=== PATIENT | female | born 1980 | race Caucasian/White ===

== ENCOUNTER 2017-09-17 17:39 | Observation (INO) ==
--- NOTE | 2017-09-17 18:23 | Emergency Department Note ---
Disposition Clinical Impression: Generalized weakness Anemia Qualifiers: Anemia type: unspecified type Qualified Code(s): D64.9 - Anemia, unspecified Disposition: Admitted As Inpatient Condition: Fair Referrals: Kathy Clancy CNP [Primary Care Provider] - Forms: ED Satisfaction Letter Time of Disposition: 19:43 Recheck wound or abnormal lab - General Chief Complaint: ED Recheck/Abnormal Lab/Rx Stated Complaint: abnormal labs/blood transfusion sent by Time Seen by Provider: 09/17/17 18:12 Source: patient, family Mode of arrival: ambulatory Limitations: no limitations Nursing Notes Reviewed: Yes Vital Signs Reviewed: Yes - History of Present Illness HPI Narrative: 37-year-old comes in been tired and weak when see her doctor yesterday and they did some lab work and found her hemoglobin to be 6.7. She also has a history of thyroid cancer and this was to be on thyroid medicine but ran out about a year ago. Pt Subjective Complaint: abnormal lab(s) Returns Today for: other (Possible blood transfusion) - Related Data Previous Rx's Medication Instructions Recorded Docusate [Colace] 200 mg PO BID #40 capsule 09/22/16 Peg 3350/Na Sulf,Bicarb,Cl/KCl 4,000 ml PO ONCE #1 soln.recon 09/22/16 [Golytely Solution] Allergies Allergy/AdvReac Type Severity Reaction Status Date / Time tramadol Allergy Rash Verified 09/17/17 17:50 Hydromorphone [From Dilaudid] AdvReac Rash Verified 09/17/17 17:50 All systems ED: reviewed and negative except as stated. Constitutional: Denies: fever, chills, weakness, weight change Eyes: Denies: eye pain, eye discharge, vision change ENT ED: Denies: ear pain, throat pain, dental pain, hearing loss, epistaxis, congestion, dysphagia Cardiovascular: Denies: chest pain, palpitations, dyspnea on exertion, edema, syncope Respiratory: Denies: cough, dyspnea, wheezes, hemoptysis, stridor Gastrointestinal: Denies: abdominal pain, nausea, vomiting, diarrhea, constipation, hematemesis, melena, hematochezia Genitourinary: Denies: dysuria, frequency, hematuria, discharge Musculoskeletal: Denies: back pain, neck pain, arthralgia, myalgia Integumentary: Denies: rash, abrasion, lesions Neurological: Reports: weakness (Generalized). Denies: headache, numbness, paresthesias, confusion, abnormal gait, vertigo Psychiatric: Denies: anxiety, depression, suicidal thoughts, homicidal thoughts , auditory hallucinations, visual hallucinations Endocrine: Denies: fatigue Hematological/Lymphatic: Denies: easy bleeding, easy bruising Allergic/Immunologic: Denies: facial swelling, urticaria Past Medical History - Past Medical History Medical history: Reports: cancer Psychiatric history: Reports: no psych history - Social History Smoking Status: Current every day smoker Smokeless Tobacco Status: No Alcohol use: Reports: none Drug use: Reports: none Physical Exam - General Limitations: no limitations General appearance: alert, in no apparent distress - Head Head exam: atraumatic, normocephalic, normal inspection - Eye Eye exam: Present: normal appearance, PERRL, EOMI - ENT ENT exam: normal exam, normal oropharynx, mucous membranes moist - Neck Neck exam: Present: normal inspection, full ROM, trachea midline - Chest Chest inspection: Present: normal inspection, symmetric chest wall rise - Respiratory Respiratory exam: Present: normal lung sounds bilaterally - Cardiovascular Cardiovascular exam: Present: regular rate, normal rhythm, normal heart sounds - Abdominal Exam Abdominal exam: Present: soft, Non-Tender. Absent: tenderness, distention, guarding, rebound, rigidity - Extremities Exam Extremities exam: Present: normal inspection, full ROM. Absent: tenderness, pedal edema - Expanded Lower Extremity Exam Neurovascular/Tendon exam: Absent: motor deficit, sensory deficit, tendon deficit Gait: observed and normal - Back Exam Back exam: Present: normal inspection, full ROM. Absent: tenderness - Neurological Exam Neurological exam: Present: alert, oriented X3 - Psychiatric Psychiatric exam: Present: normal affect, normal mood - Skin Skin exam: Present: warm, dry, intact, normal color Course - Reevaluation(s) Reevaluation #1: 37-year-old with anemia that is significant as very fatigued can barely get out of bed. She also has a history of thyroid cancer with thyroid removal and she does not take any thyroid medication. Time: 19:42 - Consultations Consultation #1: Discussed with Dr. Lambert, admit Time: 19:42 Vital Signs Temperature 99.7 F H 09/17/17 17:53 Pulse Rate 80 09/17/17 17:53 Respiratory Rate 20 09/17/17 17:53 Blood Pressure 117/76 09/17/17 17:53 O2 Sat by Pulse Oximetry 100 09/17/17 17:53 Temperature 99.7 F H 09/17/17 17:53 Pulse Rate 66 09/17/17 19:10 Respiratory Rate 15 09/17/17 19:10 Blood Pressure 91/69 09/17/17 19:10 O2 Sat by Pulse Oximetry 100 09/17/17 19:10 Oxygen Delivery Oxygen Delivery Room Air Recheck wound or abnormal lab - Lab Data Result diagrams: 09/17/17 17:56 09/17/17 17:56 Lab Results 09/17/17 09/17/17 09/17/17 Range/Units 17:56 17:56 18:25 WBC 4.9 (4.3-11.1) K/mcL RBC 3.02 L (3.82-4.97) M/mcL Hgb 7.2 L (11.5-15.4) g/dL Hct 24.0 L (35.3-44.9) % MCV 79.5 L (83.0-100.0) fL MCH 23.8 L (28.0-33.3) pg MCHC 30.0 L (31.6-35.5) g/dL RDW 18.3 H (11.5-14.5) % Plt Count 477 H (140-400) K/mcL MPV 8.5 L (9.4-12.4) fL Immature Gran % 0.4 (0-4) % Seg Neutrophils % 57.8 % Lymphocytes % 32.9 % Monocytes % 6.7 % Eosinophils % 1.8 % Basophils % 0.4 % Neutrophils # 2.8 (1.6-8.9) K/mcL Lymphocytes # 1.6 (0.6-4.6) K/mcL Monocytes # 0.3 (0.0-1.3) K/mcL Eosinophils # 0.1 (0.0-0.6) K/mcL Basophils # 0.0 (0.0-0.2) K/mcL Sodium 137 (136-145) mEq/L Potassium 3.8 (3.5-5.1) mEq/L Chloride 103 (98-107) mEq/L Carbon Dioxide 27 (23-29) mEq/L BUN 11 (6-20) mg/dL Creatinine 0.86 (0.60-1.20) mg/dL Est GFR ( Amer) > 60 (> 60) Est GFR (Non-Af Amer) > 60 (> 60) BUN/Creatinine Ratio 13 (6-26) Glucose 84 (70-105) mg/dL Calculated Osmolality 283 (280-300) Calcium 8.7 (8.6-10.3) mg/dL Total Bilirubin 0.4 (0.3-1.0) mg/dL Direct Bilirubin 0.1 (0.0-0.2) mg/dL Indirect Bilirubin 0.3 (0.0-1.2) mg/dL AST 41 H (13-39) Units/L ALT 22 (7-52) Units/L Alkaline Phosphatase 57 (34-104) Units/L Serum Total Protein 7.7 (6.4-8.9) g/dL Albumin 4.9 (3.5-5.7) g/dL Globulin 2.8 (2.4-3.5) g/dL Albumin/Globulin Ratio 1.8 (1.1-2.2) Blood Type A NEGATIVE Antibody Screen NEGATIVE Crossmatch See Detail
[2017-09-17 18:41] LABS: Basophils % 0.4 %; Eosinophils # 0.1 K/mcL (0.0-0.6); Eosinophils % 1.8 %; Hemoglobin 7.2 g/dL (11.5-15.4); Immature Granulocytes % 0.4 % (0-4); Lymphocytes # 1.6 K/mcL (0.6-4.6); Lymphocytes % 32.9 %; Mean Corpuscular Hemoglobin 23.8 pg (28.0-33.3); Mean Corpuscular Volume 79.5 fL (83.0-100.0); Mean Platelet Volume 8.5 fL (9.4-12.4); Monocytes # 0.3 K/mcL (0.0-1.3); Monocytes % 6.7 %; Neutrophils # 2.8 K/mcL (1.6-8.9); Platelet Count 477 K/mcL (140-400); Red Blood Count 3.02 M/mcL (3.82-4.97); Red Cell Distribution Width 18.3 % (11.5-14.5); Segmented Neutrophils % 57.8 %
[2017-09-17 19:08] LABS: Alanine Aminotransferase 22 Units/L (7-52); Albumin 4.9 g/dL (3.5-5.7); Albumin/Globulin Ratio 1.8 (1.1-2.2); Alkaline Phosphatase 57 Units/L (34-104); Aspartate Amino Transferase 41 Units/L (13-39); BUN/Creatinine Ratio 13 (6-26); Bilirubin,Direct 0.1 mg/dL (0.0-0.2); Bilirubin,Indirect 0.3 mg/dL (0.0-1.2); Bilirubin,Total 0.4 mg/dL (0.3-1.0); Blood Urea Nitrogen 11 mg/dL (6-20); Calcium 8.7 mg/dL (8.6-10.3); Carbon Dioxide 27 mEq/L (23-29); Chloride 103 mEq/L (98-107); Globulin 2.8 g/dL (2.4-3.5); Glucose 84 mg/dL (70-105); Osmolality,Calculated 283 (280-300); Potassium 3.8 mEq/L (3.5-5.1); Sodium 137 mEq/L (136-145); Total Protein 7.7 g/dL (6.4-8.9); eGFR For African Americans > 60 (> 60); eGFR For Non-African Americans > 60 (> 60)
[2017-09-17] MEDS ORDERED: 0.9 % Sodium Chloride 250 ML ONE (20:43)
--- NOTE | 2017-09-17 22:05 | Internal Med History&Physical ---
<Christiano Le - Last Filed: 09/17/17 22:48> Date of Encounter: 09/17/17 Time of Encounter: 22:04 Assessment and Plan (1) Hypothyroidism Current visit: Yes Status: Acute 1. Patient states she has been noncompliant with her medication and this is the most likely source of all of her symptoms 2. Was given 50 g of Synthroid in the emergency department, will continue daily at a dose of 75-100 mcg 3. We will send off for thyroid antibodies and T3 as well as obtain a thyroid ultrasound 4. An EKG was ordered due to bradycardia and low voltage QRS. 5. She has been borderline hypotensive but has a normal map and his had no altered mental status or hypothermia 6. Further complicating her hypothyroidism is her anemia which is being worked up separately, but certainly could have been an exacerbating factor 7. We will get a chest x-ray and VBG to evaluate for pleural effusion 8. We will also check a CK 9. Initial TSH and T4 levels are suggestive of primary hypothyroidism 10. If patient's condition worsens before she starts developing any altered mental status, worsening hypotension or significant bradycardia. We will start hydrocortisone 100 mg every 8 hours IV but will hold off on this for now and she does not appear to be critically ill Qualifiers: Hypothyroidism type: postoperative Qualified Code(s): E89.0 - Postprocedural hypothyroidism (2) Anemia Current visit: Yes Status: Acute 1. Unclear etiology at this time 2. Is a microcytic anemia, so we will check iron profile and reticulocyte count after her 2U PRBC blood transfusion. Since this was started prior to ordering these labs 3. Hemoccult stool ordered 4. Patient also complaining of constipation but this is chronic for her and likely related to her hypothyroidism, will add bowel regimen Qualifiers: Anemia type: unspecified type Qualified Code(s): D64.9 - Anemia, unspecified (3) Generalized weakness Current visit: Yes Status: Acute 1. Multifactorial secondary to her hypothyroidism and anemia Internal Medicine - H&P: HPI Chief complaint: fatigue Admitted From: Emergency Dept Plans for Post Hospital Care: Home History of present illness: Ms. Fisher is a 37 year old female with remote history of thyroid cancer, status post removal about 10 years ago, but is otherwise healthy. She states that she has not been taking her medication over the last year. Complaining of increasing weakness and fatigue in the last year as well. She denies any fever or chills but does state that she gets cold very easily. She has had some thinning of her hair and brittle nails. She has also had a hoarse voice and her mother describes her voice as squeaking at times. She denies any chest pain or shortness of breath. She does state that she gets very lightheaded and near syncopal at times, but most the time whenever she stands up too fast. She denies any abdominal pain but states that her abdomen does get lumpy at times. He denies any distention or bloating. Does complain of intermittent nausea but no vomiting. States that she had a normal bowel movement today that was nonbloody, non-melanic and no diarrhea. However, she does have significant issues with constipation and states that sometimes she can go several weeks without having a bowel movement. She denies any dysuria or hematuria. She denies any pain or swelling in her legs. No back pain, headache or changes in vision. No rashes. She was found to have a microcytic anemia in the ER and 2 units of blood were ordered. Patient does state that she has very heavy periods. This likely related to iron deficiency as there is no obvious source of bleeding. See plan. Past Med Surg Social Fam HX - Past Medical History Medical history: cancer Additional medical history: thyroid cancer Psychiatric history: no psych history - Social History Smoking Status: Current every day smoker Smokeless Tobacco Status: No Alcohol use: none Drug use: none - Family History Paternal Grandmother Living Status: Hx Family Cancer: Yes (multiple myeloma) Brother Hx Family Cancer: (melonoma) Internal Medicine - H&P: Meds No Known Home Drugs 09/17/17 [History] 3 Allergy/AdvReac Type Severity Reaction Status Date / Time tramadol Allergy Rash Verified 09/17/17 17:50 Hydromorphone [From Dilaudid] AdvReac Rash Verified 09/17/17 17:50 All Systems PM: A 10-system review of systems was performed and is negative for pertinent findings except as documented above in the HPI. Review of systems: As reviewed in the HPI. All other systems reviewed are negative or normal. - Constitutional Vitals: Temp Pulse Resp BP Pulse Ox 98.5 F 57 14 95/72 99 09/17/17 21:10 06/19/18 21:32 09/17/17 21:32 09/17/17 21:32 09/17/17 21:32 General appearance: Present: A&O X 3, pleasant, no acute distress, answers questions appropriately - Head Head exam: Present: atraumatic, normocephalic - Eye Eye exam: Present: PERRL, conjuntiva pink, sclera anicteric Pupils: Present: PERRL - Neck Neck exam general surgery: Present: supple, trachea midline. Absent: lymphadenopathy - Respiratory Respiratory exam: Present: CTAB. Absent: accessory muscle use, rales, rhonchi, wheezes - Cardiovascular Cardiovascular exam: Present: bradycardia, +S1, +S2. Absent: diastolic murmur, gallop, RRR, rubs, systolic murmur - GI/Abdominal GI/Abdominal exam: Present: normal bowel sounds, soft, no peritoneal signs. Absent: distended, tenderness - Extremities Exam Extremities exam: Present: normal capillary refill, warm, radial pulses palpable and symmetrical. Absent: calf tenderness, cyanotic, pedal edema - Neurological Exam Neurological exam: Present: alert, CN II-XII intact, oriented X3, no focal deficits. Absent: facial droop, speech deficit - Skin Skin exam: Present: dry, intact, pallor Internal Med - H&P Results - Labs CBC & Chem 7: 09/17/17 17:56 09/17/17 17:56 - EKG Data -: EKG Interpreted by Myself (Sinus bradycardia, rate 53, QRS 99, QTC 429, normal axis, low voltage QRS, ) <Jessica Nino - Last Filed: 09/18/17 02:27> Date of Encounter: 09/18/17 Internal Medicine - H&P: HPI History of present illness: Ms. Fisher is a 37 year old female All Systems PM: A 10-system review of systems was performed and is negative for pertinent findings except as documented above in the HPI. - Constitutional Vitals: Temp Pulse Resp BP Pulse Ox 98.2 F 51 16 82/59 98 09/18/17 01:07 09/18/17 01:07 09/18/17 01:07 09/18/17 01:07 09/18/17 01:07 Internal Med - H&P Results - Labs CBC & Chem 7: 09/17/17 17:56 09/17/17 17:56 - Attending Attestation I have seen and examined this patient independently. I have discussed with resident physician Dr. Le regarding the management plan. Agree with the documentation except: Patient has history of thyroid cancer S/P thyroidectomy which explain patient's hypothyroidism. Patient is supposed to take 100 g Synthroid daily but she is noncompliant with the medication. Will start 125 mcg by mouth daily and closely monitor thyroid function. Patient's anemia probably due to heavy menoperoid. Will continue transfusion and closely monitor H&H. Patient may need further [employer] follow-up after discharge.
[2017-09-17] MEDS ORDERED: Naloxone 0.4 MG/ML INJ IVP PRN (22:16)
[2017-09-18] MEDS ORDERED: 0.9 % Sodium Chloride 250 ML ONE (00:42)
[2017-09-18 05:33] LABS: VBG HCO3 27 mEq/L (21-27); VBG PCO2 40 mmHg (41-51); VBG PH 7.43 pH Units (7.32-7.42); VBG PO2 110 mmHg (25-50)
[2017-09-18 05:36] LABS: Retculocyte # 0.05 M/mcL (0.05-0.10); Reticulocyte % 1.4 % (1.6-2.8)
[2017-09-18 05:38] LABS: Basophils % 0.5 %; Eosinophils # 0.1 K/mcL (0.0-0.6); Eosinophils % 3.2 %; Hematocrit 27.5 % (35.3-44.9); Hemoglobin 8.6 g/dL (11.5-15.4); Immature Granulocytes % 0.5 % (0-4); Immature Platelets 1.4 % (1.1-6.1); Lymphocytes # 1.6 K/mcL (0.6-4.6); Lymphocytes % 36.2 %; Mean Corpuscular HGB Conc 31.3 g/dL (31.6-35.5); Mean Corpuscular Hemoglobin 25.4 pg (28.0-33.3); Mean Corpuscular Volume 81.1 fL (83.0-100.0); Mean Platelet Volume 8.3 fL (9.4-12.4); Monocytes # 0.3 K/mcL (0.0-1.3); Monocytes % 7.8 %; Neutrophils # 2.3 K/mcL (1.6-8.9); Platelet Count 417 K/mcL (140-400); Red Blood Count 3.39 M/mcL (3.82-4.97); Segmented Neutrophils % 51.8 %
[2017-09-18 05:53] LABS: BUN/Creatinine Ratio 11 (6-26); Blood Urea Nitrogen 9 mg/dL (6-20); Calcium 8.1 mg/dL (8.6-10.3); Carbon Dioxide 25 mEq/L (23-29); Chloride 105 mEq/L (98-107); Glucose 97 mg/dL (70-105); Magnesium 2.2 mg/dL (1.6-2.6); Osmolality,Calculated 283 (280-300); Phosphorous 3.5 mg/dL (2.7-4.5); Potassium 3.6 mEq/L (3.5-5.1); Sodium 137 mEq/L (136-145); eGFR For African Americans > 60 (> 60); eGFR For Non-African Americans > 60 (> 60)
[2017-09-18 06:09] LABS: Triiodothyronine (T3) Free 0.99 pg/mL (2.50-3.90)
--- NOTE | 2017-09-18 11:59 | Internal Med Progress Note ---
Date of Encounter: 09/18/17 Time of Encounter: 11:55 - Assessment and plan (1) Anemia Current Visit: Yes Status: Acute Assessment and plan: Unclear etiology but most likely due to underlying hypothyroid but anemia panel ordered by admitting physician. Hemoccult test not done as patient did not pass stool he had. 2 unit blood transfusion and improving hemoglobin. No active bleeding CBC monitoring. Qualifiers: Anemia type: unspecified type Qualified Code(s): D64.9 - Anemia, unspecified (2) Hypothyroidism Current Visit: Yes Status: Acute Assessment and plan: History of papillary thyroid cancer. Is status post surgery and radioactive therapy. Noncompliant patient. Patient supposed to take thyroid medication 100 g daily but is stopped taking for 1 year. Eventually she developed progressive symptoms 40, constipation, heavy vaginal bleeding therefore seen ECP who ordered basic lab tests and called the patient to go ER as hemoglobin was around 6.7. Patient had bradycardia heart rate in 30s and 40s in the ER but now in higher 50s and lower 60s after getting thyroid medicine in the ER .Synthroid 50 g was given in the ER. I talked to Dr. bautista shift stacker on phone who did not see patient in the hospital but discussed the case and the she advised to his start levothyroxin 125 g daily and recommended to follow her up in 4-8 weeks. Further workup including TPO and ultrasound can be done outpatient. Slight elevation in CPK therefore will repeat the level Qualifiers: Hypothyroidism type: postoperative Qualified Code(s): E89.0 - Postprocedural hypothyroidism (3) Generalized weakness Current Visit: Yes Status: Chronic Assessment and plan: Most likely related with the above. Treat underlying cause (4) Bradycardia Current Visit: Yes Status: Acute Assessment and plan: Sinus bradycardia. Now heart rate in 50s-60s. Most likely due to underlying hypothyroid but will also order echocardiogram to rule out underlying etiology. Will consult electrician deck if needed. (5) DVT prophylaxis Current Visit: Yes Status: Acute Assessment and plan: SCDs - Time Spent With Patient Total time spent is greater than 50% in coordination of care (as documented) at patient's floor/unit and/or counseling patient: 25 - 35 minutes - Subjective Interval history: Patient lying comfortably on bed. Telemetry heart rate in 60s. Complaint of fatigue and generalized weakness. Intermittent fevers hot and cold. Patient received 2 unit of blood transfusion overnight. Review of the lab Patient denies fever, nausea, vomiting, headache, dizziness, chest pain, shortness of breath, urinary complaint. Chronic constipation. - Constitutional Vitals: Temp Pulse Resp BP Pulse Ox 98.1 F 54 18 91/65 99 09/18/17 11:20 09/18/17 11:20 09/18/17 11:20 09/18/17 11:20 09/18/17 11:20 General appearance: Present: A&O X 3, pleasant, no acute distress, answers questions appropriately Exam: General appearance: No acute distress, A&O X 3. Appears tired and pale Head exam: Atraumatic Eye exam: EOMI, PERRLA ENT exam: Moist oral mucosa Neck nontender, supple Respiratory exam: Clear to auscultation bilaterally Cardiovascular exam: Regular rate and rhythm, no systolic murmur Abdominal exam: Soft, nontender, nondistended, positive bowel sounds Extremities exam: No calf tenderness, no pedal edema Present: Skin-no rash, warm, dry, intact Neurological exam: Alert, awake, oriented 3, CN II-XII intact, no focal deficits. No facial droop. Normal speech. Normal gait. Internal Medicine: Result - Labs CBC & Chem 7: 09/18/17 05:21 09/18/17 05:21 Labs: Short CBC 09/18/17 Range/Units 05:21 WBC 4.4 (4.3-11.1) K/mcL Hgb 8.6 L (11.5-15.4) g/dL Hct 27.5 L (35.3-44.9) % Plt Count 417 H (140-400) K/mcL Neutrophils # 2.3 (1.6-8.9) K/mcL BMP 09/18/17 05:21 Sodium 137 Potassium 3.6 Chloride 105 Carbon Dioxide 25 BUN 9 Creatinine 0.79 Glucose 97 Calcium 8.1 L Consult Discharge Plan - Plan Referrals: Kathy Clancy CNP [Primary Care Provider] - 09/27/17 9:15 am
--- NOTE | 2017-09-18 12:34 | Electrocardiograph Report ---
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
[2017-09-18] MEDS: 0.9 % Sodium Chloride 1,000 ML IVC SCH ×2 (14:23→23:46)
[2017-09-18 14:49] LABS: Troponin I < 0.03 ng/mL (< 0.04)
[2017-09-18 15:07] LABS: Magnesium 2.2 mg/dL (1.6-2.6)
[2017-09-18] MEDS ORDERED: tiZANidine 4 MG TABLET PO PRN (20:19)
[2017-09-19 05:41] LABS: Basophils % 0.6 %; Eosinophils # 0.1 K/mcL (0.0-0.6); Eosinophils % 1.7 %; Hematocrit 27.1 % (35.3-44.9); Hemoglobin 8.4 g/dL (11.5-15.4); Immature Granulocytes % 0.6 % (0-4); Lymphocytes # 1.7 K/mcL (0.6-4.6); Lymphocytes % 37.4 %; Mean Corpuscular Hemoglobin 25.5 pg (28.0-33.3); Mean Corpuscular Volume 82.4 fL (83.0-100.0); Mean Platelet Volume 8.4 fL (9.4-12.4); Monocytes # 0.3 K/mcL (0.0-1.3); Monocytes % 6.7 %; Neutrophils # 2.5 K/mcL (1.6-8.9); Platelet Count 343 K/mcL (140-400); Red Blood Count 3.29 M/mcL (3.82-4.97); Red Cell Distribution Width 18.3 % (11.5-14.5)
[2017-09-19 05:57] LABS: BUN/Creatinine Ratio 11 (6-26); Blood Urea Nitrogen 8 mg/dL (6-20); Calcium 7.8 mg/dL (8.6-10.3); Carbon Dioxide 24 mEq/L (23-29); Chloride 107 mEq/L (98-107); Glucose 90 mg/dL (70-105); Osmolality,Calculated 282 (280-300); Potassium 3.4 mEq/L (3.5-5.1); Sodium 137 mEq/L (136-145); eGFR For African Americans > 60 (> 60); eGFR For Non-African Americans > 60 (> 60)
[2017-09-19] MEDS: 0.9 % Sodium Chloride 1,000 ML IVC SCH (09:34)
--- NOTE | 2017-09-19 12:31 | Discharge Summary ---
- NOTES TO OUTPATIENT PROVIDER Notes to Outpatient Provider: Follow-up with PCP in one week-repeat CPK. Need anemia workup on OPD basis. TSH, T4 in 2-4 weeks. Make appointment with bight maker in 4-6 week. Even herself hydrated Orders not resulted at time of discharge: Pending orders 09/17/17 22:11 XR chest 1V portable [XR] Routine Occult Blood,Stool [BF] Routine 09/17/17 22:16 Urinalysis reflex Microscopic [URIN] Routine 09/20/17 04:00 BMP [Basic Metabolic Panel] AM 0400 Complete Blood Count [HEME] AM 0400 Date of Encounter: 09/19/17 Time of Encounter: 12:23 - Discharge Diagnosis (1) Anemia Priority: Primary Status: Acute Assessment and Plan: Unclear etiology, most likely due to underlying hypothyroid but anemia workup needs to be done done on OPD basis by PCP. 2 unit blood transfusion stable hemoglobin and last 24-hour. No active bleeding. Hemoccult test negative Qualifiers: Anemia type: unspecified type Qualified Code(s): D64.9 - Anemia, unspecified (2) Hypothyroidism Priority: Primary Status: Acute Assessment and Plan: History of papillary thyroid cancer. status post surgery and radioactive therapy. Noncompliant patient. Patient supposed to take thyroid medication 100 g daily but stopped taking for 1 year. Eventually she developed progressive symptoms of fatigue, constipation, heavy vaginal bleeding therefore seen PCP who ordered basic lab tests and called the patient to go ER as hemoglobin was around 6.7. Patient had bradycardia heart rate in 30s and 40s in the ER therefore put on telemetry bed at 2 not. Thyroid supplementation started. I talked to Dr. bautista bight maker on phone who does not see patient in the hospital but discussed the case and the she advised to start levothyroxin 125 g daily and recommended to follow her up in 4-8 weeks. Further workup can be done outpatient. Trending down CPK -repeat level in one week at PCP office Qualifiers: Hypothyroidism type: postoperative Qualified Code(s): E89.0 - Postprocedural hypothyroidism Code(s): E03.9 - Hypothyroidism, unspecified SNOMED Code(s): 86297773 (3) Bradycardia Priority: Secondary Status: Acute Assessment and Plan: Sinus bradycardia. Most likely due to symptomatic hypothyroid .Resolved now. Heart rate more than 60. Echocardiogram with no acute finding and preserved LV function. . Code(s): R00.1 - Bradycardia, unspecified SNOMED Code(s): 26267233 (4) Generalized weakness Priority: Secondary Status: Chronic Assessment and Plan: Most likely related with the above. Improving now. Code(s): R53.1 - Weakness SNOMED Code(s): 27494315 Hospital course: Ms. Fisher is a 37 year old female patient with history of thyroid cancer status post surgery, hypothyroidism got admitted for symptomatic anemia and severe hypothyroidism. Please see details in diagnosis part of discharge summary. Patient is clinically stable therefore decided to discharge home. At the time of discharge patient is able to tolerate oral diet and ambulating well - Time Spent with Patient Total time spent providing and/or coordinating discharge services: - Discharge Medications Prescriptions: Levothyroxine [Synthroid] 125 mcg PO DAILY@0630 #30 tablet Home Medications: Levothyroxine [Synthroid] 125 mcg PO DAILY@0630 #30 tablet 09/19/17 [Rx] Allergies/Adverse Reactions: 3 Allergy/AdvReac Type Severity Reaction Status Date / Time tramadol Allergy Rash Verified 09/17/17 17:50 Hydromorphone [From Dilaudid] AdvReac Rash Verified 09/17/17 17:50 Date of admission: 09/17/17 21:01 Primary care physician: Kathy Clancy - Constitutional Vitals: Temp Pulse Resp BP Pulse Ox 98.1 F 64 18 95/68 100 09/19/17 11:45 09/19/17 11:45 09/19/17 11:45 09/19/17 11:45 09/19/17 11:45 General appearance: Present: A&O X 3, pleasant, no acute distress, answers questions appropriately Exam: General appearance: No acute distress, A&O X 3 Head exam: Atraumatic Eye exam: EOMI, PERRLA ENT exam: Moist oral mucosa Neck nontender, supple Respiratory exam: Clear to auscultation bilaterally Cardiovascular exam: Regular rate and rhythm, no systolic murmur Abdominal exam: Soft, nontender, nondistended, positive bowel sounds Extremities exam: No calf tenderness, no pedal edema Present: Skin-no rash, warm, dry, intact Neurological exam: Alert, awake, oriented 3, CN II-XII intact, no focal deficits. No facial droop. Normal speech. Normal gait. Romberg sign negative - Patient Status Disposition: Home, Self-Care Condition: Good Overall status at discharge: patient is back to baseline - Discharge Instructions Follow Up With: Kathy Clancy CNP [Primary Care Provider] - 09/27/17 9:15 am - Diet and Activity Activity: increase activity as tolerated Diet: advance to your usual diet - VTE Documentation of Mechanical Device: Intermittent pneumatic compression device
[2017-09-19 15:03] LABS: Bilirubin,Urine Negative (Negative); Blood,Urine Moderate (Negative); Clarity,Urine Clear (Clear); Color,Urine Yellow (Yellow); Glucose,Urine (UA) Normal (Normal); Ketones,Urine Negative (Negative); Leukocyte Esterase,Urine Negative (Negative); Nitrite,Urine Negative (Negative); Protein,Urine Negative (Neg-Trace); Specific Gravity,Urine 1.012 (1.010-1.025); Urobilinogen,Urine Normal (Normal)
[2017-09-19 15:05] LABS: Bacteria,Urine None Seen per hpf (None-Few); Hyaline Casts,Urine None Seen per lpf (None-Few); Squamous Epithelial Cell,Urine Moderate per lpf (None-Few); WBC,Urine 0-3 per hpf (0-3)
[2017-09-19 15:16] LABS: RBC,Urine 0-3 per hpf (0-3)
[2017-09-19 16:23] VITALS: BP 95/57
== END 2017-09-19 18:48 | disposition home or self-care (01) ==
LOC: 2NNU 17:39 → EMEROO 17:39 → 2NNU 22:02
PROVIDERS: ADMIT Internal Medicine; ATTEND Family Medicine

== ENCOUNTER 2021-09-16 16:40 | Inpatient (IN) ==
[2021-09-16 17:34] LABS: Bilirubin,Urine Negative (Negative); Blood,Urine Negative (Negative); Clarity,Urine Clear (Clear); Color,Urine Light-Yellow (Yellow); Glucose,Urine (UA) Normal (Normal); Ketones,Urine Negative (Negative); Leukocyte Esterase,Urine Negative (Negative); Nitrite,Urine Negative (Negative); PH,Urine 6.5 pH Units (5.0-8.0); Protein,Urine Trace mg/dL (Neg-Trace); Specific Gravity,Urine 1.028 (1.010-1.025); Urobilinogen,Urine Normal (Normal)
[2021-09-16 17:50] LABS: Basophils % 0.5 %; Eosinophils # 0.1 K/mcL (0.0-0.6); Eosinophils % 2.7 %; Hematocrit 23.2 % (35.3-44.9); Hemoglobin 6.8 g/dL (11.5-15.4); Immature Granulocytes % 0.2 % (0-4); Lymphocytes # 1.1 K/mcL (0.6-4.6); Lymphocytes % 26.9 %; Mean Corpuscular HGB Conc 29.3 g/dL (31.6-35.5); Mean Corpuscular Hemoglobin 22.8 pg (28.0-33.3); Mean Corpuscular Volume 77.9 fL (83.0-100.0); Mean Platelet Volume 8.6 fL (9.4-12.4); Monocytes # 0.3 K/mcL (0.0-1.3); Monocytes % 7.7 %; Neutrophils # 2.5 K/mcL (1.6-8.9); Platelet Count 440 K/mcL (140-400); Red Blood Count 2.98 M/mcL (3.82-4.97); Red Cell Distribution Width 19.9 % (11.5-14.5); White Blood Count 4.1 K/mcL (4.3-11.1)
[2021-09-16 17:57] LABS: INR 1.1
[2021-09-16 18:00] LABS: Activated Partial Thrombo Time 45.1 Seconds (26.0-36.0)
[2021-09-16] MEDS ORDERED: Pantoprazole 40 MG in 0.9 % Sodium Chloride 100 ML IVC SCH (18:00)
[2021-09-16] MEDS ORDERED: Pantoprazole 80 MG in 0.9 % Sodium Chloride 50 ML IVPB ONE (18:00)
[2021-09-16 18:13] LABS: Alanine Aminotransferase 17 Units/L (7-52); Albumin 4.3 g/dL (3.5-5.7); Albumin/Globulin Ratio 1.5 (1.1-2.2); Alkaline Phosphatase 39 Units/L (34-104); Aspartate Amino Transferase 42 Units/L (13-39); BUN/Creatinine Ratio 10 (6-26); Bilirubin,Indirect 0.4 mg/dL (0.0-1.0); Bilirubin,Total 0.4 mg/dL (0.3-1.0); Blood Urea Nitrogen 10 mg/dL (6-20); Calcium 8.1 mg/dL (8.6-10.3); Carbon Dioxide 26 mEq/L (23-29); Chloride 100 mEq/L (98-107); Globulin 2.9 g/dL (2.4-3.5); Glucose 90 mg/dL (70-105); Osmolality,Calculated 277 (280-300); Potassium 3.6 mEq/L (3.5-5.1); Sodium 134 mEq/L (136-145); Total Protein 7.2 g/dL (6.4-8.9); eGFR For African Americans > 60 (> 60); eGFR For Non-African Americans > 60 (> 60)
[2021-09-16] MEDS ORDERED: Naloxone 0.4 MG/ML INJ IVP PRN (19:11)
[2021-09-16] MEDS ORDERED: Ondansetron ODT 4 MG TAB.RAPDIS SL PRN (19:11)
[2021-09-16] MEDS ORDERED: Melatonin 3 MG TABLET PO PRN (19:11)
[2021-09-16] MEDS ORDERED: 0.9 % Sodium Chloride 250 ML ONE (20:10)
[2021-09-16] MEDS ORDERED: Iopamidol - 370 500 ML MLS IVP ONE (20:26)
[2021-09-16] MEDS ORDERED: Sennosides/Docusate Sodium TABLET PO PRN (20:40)
[2021-09-16 20:50] LABS: Thyroid Stimulating Hormone 85.014 mcIU/mL (0.340-5.600)
[2021-09-16] MEDS ORDERED: 0.9 % Sodium Chloride 1,000 ML IVC SCH (21:30)
[2021-09-16] MEDS ORDERED: Levothyroxine Sodium 200 MCG VIAL IVP ONE (21:48)
[2021-09-16] MEDS: Hydrocortisone Sodium Succ 100 MG/2 ML VIAL IVP SCH (23:36)
[2021-09-16] MEDS: Pantoprazole 40 MG in 0.9 % Sodium Chloride Mini Bag 100 ML IVC SCH (23:49)
[2021-09-17] MEDS: Pantoprazole 40 MG in 0.9 % Sodium Chloride Mini Bag 100 ML IVC SCH ×5 (00:18→19:19)
[2021-09-17] MEDS: Hydrocortisone Sodium Succ 100 MG/2 ML VIAL IVP SCH ×3 (03:54→17:31)
[2021-09-17 06:12] LABS: Basophils % 0.2 %; Hematocrit 27.1 % (35.3-44.9); Hemoglobin 8.2 g/dL (11.5-15.4); Immature Granulocytes % 0.4 % (0-4); Lymphocytes # 0.8 K/mcL (0.6-4.6); Lymphocytes % 17.1 %; Mean Corpuscular HGB Conc 30.3 g/dL (31.6-35.5); Mean Corpuscular Hemoglobin 23.8 pg (28.0-33.3); Mean Corpuscular Volume 78.8 fL (83.0-100.0); Mean Platelet Volume 8.6 fL (9.4-12.4); Monocytes # 0.1 K/mcL (0.0-1.3); Monocytes % 2.4 %; Neutrophils # 3.7 K/mcL (1.6-8.9); Platelet Count 426 K/mcL (140-400); Red Blood Count 3.44 M/mcL (3.82-4.97); Red Cell Distribution Width 18.9 % (11.5-14.5); Segmented Neutrophils % 79.9 %; White Blood Count 4.6 K/mcL (4.3-11.1)
[2021-09-17 06:22] LABS: INR 1.1; Prothrombin Time 12.5 Seconds (9.4-12.1)
[2021-09-17 06:33] LABS: % Iron Saturation 19 % (15-50); Alanine Aminotransferase 15 Units/L (7-52); Albumin 3.9 g/dL (3.5-5.7); Albumin/Globulin Ratio 1.3 (1.1-2.2); Alkaline Phosphatase 43 Units/L (34-104); Aspartate Amino Transferase 38 Units/L (13-39); BUN/Creatinine Ratio 9 (6-26); Bilirubin,Total 0.6 mg/dL (0.3-1.0); Blood Urea Nitrogen 9 mg/dL (6-20); Calcium 7.6 mg/dL (8.6-10.3); Carbon Dioxide 24 mEq/L (23-29); Chloride 103 mEq/L (98-107); Globulin 2.9 g/dL (2.4-3.5); Glucose 109 mg/dL (70-105); Iron 72 mcg/dL (50-170); Magnesium 2.3 mg/dL (1.6-2.6); Osmolality,Calculated 279 (280-300); Phosphorous 3.7 mg/dL (2.7-4.5); Potassium 3.7 mEq/L (3.5-5.1); Sodium 135 mEq/L (136-145); Total Protein 6.8 g/dL (6.4-8.9); Transferrin 275 mg/dL (203-362); eGFR For African Americans > 60 (> 60); eGFR For Non-African Americans > 60 (> 60)
[2021-09-17 07:06] LABS: Ferritin < 8 ng/mL (10-120); Folate > 22.3 ng/mL (3.0-16.0); Vitamin B12 736 pg/mL (250-1100)
[2021-09-17 13:04] LABS: Hematocrit 26.8 % (35.3-44.9); Hemoglobin 8.4 g/dL (11.5-15.4)
[2021-09-17] MEDS ORDERED: Levothyroxine Sodium 100 MCG VIAL IVP SCH (18:00)
[2021-09-17] MEDS: Sennosides/Docusate Sodium TABLET PO SCH (20:33)
[2021-09-18] MEDS: Pantoprazole 40 MG in 0.9 % Sodium Chloride Mini Bag 100 ML IVC SCH ×5 (00:25→21:05)
[2021-09-18 05:58] LABS: Hematocrit 26.1 % (35.3-44.9); Hemoglobin 7.8 g/dL (11.5-15.4); Immature Granulocytes % 0.9 % (0-4); Lymphocytes # 0.7 K/mcL (0.6-4.6); Lymphocytes % 14.2 %; Mean Corpuscular HGB Conc 29.9 g/dL (31.6-35.5); Mean Corpuscular Hemoglobin 23.6 pg (28.0-33.3); Mean Corpuscular Volume 78.9 fL (83.0-100.0); Mean Platelet Volume 8.7 fL (9.4-12.4); Monocytes # 0.3 K/mcL (0.0-1.3); Monocytes % 5.8 %; Neutrophils # 3.7 K/mcL (1.6-8.9); Platelet Count 429 K/mcL (140-400); Red Blood Count 3.31 M/mcL (3.82-4.97); Red Cell Distribution Width 19.3 % (11.5-14.5); Segmented Neutrophils % 79.1 %; White Blood Count 4.7 K/mcL (4.3-11.1)
[2021-09-18] MEDS: Sennosides/Docusate Sodium TABLET PO SCH ×2 (07:38→20:21)
[2021-09-18] MEDS: polyethylene glycoL 3350 17 GM POWD.PACK PO SCH (13:53)
[2021-09-18] MEDS ORDERED: SODIUM CHLORIDE/NAHCO3/KCL/PEG 4,000 ML SOLN.RECON PO ONE (17:00)
[2021-09-18 20:45] LABS: Hematocrit 27.9 % (35.3-44.9); Hemoglobin 8.3 g/dL (11.5-15.4)
[2021-09-19] MEDS: Pantoprazole 40 MG in 0.9 % Sodium Chloride Mini Bag 100 ML IVC SCH ×4 (01:45→22:48)
[2021-09-19 05:58] LABS: Basophils % 0.8 %; Eosinophils % 0.6 %; Hemoglobin 8.3 g/dL (11.5-15.4); Immature Granulocytes % 0.2 % (0-4); Lymphocytes # 1.7 K/mcL (0.6-4.6); Lymphocytes % 35.4 %; Mean Corpuscular HGB Conc 29.6 g/dL (31.6-35.5); Mean Corpuscular Hemoglobin 23.6 pg (28.0-33.3); Mean Corpuscular Volume 79.8 fL (83.0-100.0); Mean Platelet Volume 8.4 fL (9.4-12.4); Monocytes # 0.4 K/mcL (0.0-1.3); Monocytes % 7.5 %; Neutrophils # 2.7 K/mcL (1.6-8.9); Platelet Count 475 K/mcL (140-400); Red Blood Count 3.51 M/mcL (3.82-4.97); Red Cell Distribution Width 19.6 % (11.5-14.5); Segmented Neutrophils % 55.5 %; White Blood Count 4.8 K/mcL (4.3-11.1)
[2021-09-19] MEDS: Sennosides/Docusate Sodium TABLET PO SCH ×2 (08:33→22:49)
[2021-09-19] MEDS: polyethylene glycoL 3350 17 GM POWD.PACK PO SCH (08:35)
[2021-09-19] MEDS ORDERED: SODIUM CHLORIDE/NAHCO3/KCL/PEG 4,000 ML SOLN.RECON PO ONE (13:00)
[2021-09-20] MEDS: Pantoprazole 40 MG in 0.9 % Sodium Chloride Mini Bag 100 ML IVC SCH ×2 (03:53→06:52)
[2021-09-20 04:01] VITALS: O2SAT 95
[2021-09-20 06:52] VITALS: BP 106/72; PULSE 67; TEMP 98.3
== END 2021-09-20 09:31 | disposition left against medical advice (07) | DRG 59 ==
LOC: EMEROOARM 16:40 → 3BNU 16:40 → SUATTDRO 19:11
PROVIDERS: ADMIT Student in an Organized Health Care Education/Training Program; ATTEND Registered Nurse